=== PATIENT | female | born 1965 | race Caucasian/White ===

== ENCOUNTER 2021-11-23 06:06 | Observation (INO) ==
[2021-11-23] MEDS ORDERED: diazePAM 5 MG TABLET PO ONE (06:32)
[2021-11-23] MEDS ORDERED: Ondansetron 4 MG/2 ML VIAL ONE (06:45)
[2021-11-23] MEDS ORDERED: Lidocaine -MPF 2% 5 ML VIAL ONE (06:45)
[2021-11-23] MEDS ORDERED: *HR* Midazolam HCl 5 MG/5 ML VIAL IVP ONE (06:45)
[2021-11-23] MEDS ORDERED: *HR* FentaNYL (PF) 100 MCG/2 ML VIAL ONE (06:45)
[2021-11-23] MEDS ORDERED: CeFAZolin Syr 2,000MG/20 ML 2,000 MG/20 ML SYRINGE IVPB ONE (06:46)
[2021-11-23] MEDS ORDERED: Ringers Solution, Lactated 1,000 ML IVC SCH ×2 (07:00→12:03)
[2021-11-23] MEDS ORDERED: Famotidine 20 MG TABLET PO ONE (07:00)
[2021-11-23] MEDS ORDERED: Tranexamic Acid 1,000 MG/10 ML VIAL ONE ×2 (07:25→09:36)
[2021-11-23] MEDS ORDERED: *HR* OxyCODONE Immed Rel 5 MG TABLET PO PRN ×2 (10:28→12:03)
[2021-11-23] MEDS ORDERED: Ondansetron 4 MG/2 ML VIAL IVP PRN ×2 (10:28→12:03)
[2021-11-23] MEDS ORDERED: *HR* Midazolam HCl 2 MG/2 ML VIAL IVP PRN (11:21)
[2021-11-23] MEDS ORDERED: Naloxone 0.4 MG/ML INJ IVP PRN (12:03)
[2021-11-23] MEDS ORDERED: Sennosides 8.6 MG TABLET PO PRN (12:03)
[2021-11-23] MEDS ORDERED: *HR* Promethazine 25 MG/ML VIAL IM PRN (12:03)
[2021-11-23] MEDS ORDERED: MOM Conc 10 ML UD.LIQ PO PRN (12:03)
[2021-11-23] MEDS ORDERED: *HR* HYDROmorphone (PF) 1 MG/ML SYRINGE IVP PRN (12:03)
[2021-11-23] MEDS: CeFAZolin 2 GM/120 ML BAG IVPB SCH ×2 (18:29→23:32)
[2021-11-23] MEDS: Ascorbic Acid 500 MG TABLET PO SCH (18:30)
[2021-11-23] MEDS: Apixaban 2.5 MG TABLET PO SCH ×2 (19:33→19:35)
[2021-11-23] MEDS: *HR* OxyCODONE Immed Rel 5 MG TABLET PO PRN (20:17)
[2021-11-24] MEDS: *HR* OxyCODONE Immed Rel 5 MG TABLET PO PRN (01:19)
[2021-11-24 05:53] LABS: Basophils % 0.3 %; Eosinophils % 0.3 %; Hematocrit 36.9 % (35.3-44.9); Hemoglobin 11.8 g/dL (11.5-15.4); Immature Granulocytes % 0.5 % (0-4); Lymphocytes # 1.3 K/mcL (0.6-4.6); Lymphocytes % 13.4 %; Mean Corpuscular Hemoglobin 27.2 pg (28.0-33.3); Mean Platelet Volume 7.9 fL (9.4-12.4); Monocytes # 0.9 K/mcL (0.0-1.3); Monocytes % 9.8 %; Platelet Count 293 K/mcL (140-400); Red Blood Count 4.34 M/mcL (3.82-4.97); Red Cell Distribution Width 14.1 % (11.5-14.5); Segmented Neutrophils % 75.7 %; White Blood Count 9.3 K/mcL (4.3-11.1)
[2021-11-24 06:18] LABS: BUN/Creatinine Ratio 15 (6-26); Blood Urea Nitrogen 9 mg/dL (6-20); Calcium 8.2 mg/dL (8.6-10.3); Carbon Dioxide 26 mEq/L (23-29); Chloride 106 mEq/L (98-107); Glucose 120 mg/dL (70-105); Osmolality,Calculated 288 (280-300); Potassium 3.6 mEq/L (3.5-5.1); Sodium 139 mEq/L (136-145)
[2021-11-24] MEDS ORDERED: Budesonide/Formoterol 160/4.5 1 PUFF INH IH ONE (07:41)
[2021-11-24] MEDS ORDERED: Budesonide/Formoterol 80/4.5 1 PUFF INH IH ONE (07:46)
[2021-11-24] MEDS ORDERED: HYDROcodone BIT/Homatropine 5 MG TABLET PO PRN (08:12)
[2021-11-24] MEDS: Apixaban 2.5 MG TABLET PO SCH ×2 (09:02→20:36)
[2021-11-24] MEDS: Ascorbic Acid 500 MG TABLET PO SCH ×2 (09:02→17:21)
[2021-11-24] MEDS: Multivit/Ca/Min/Fe/FA 1 TAB TABLET PO SCH (09:02)
[2021-11-24] MEDS: Budesonide/Formoterol 80/4.5 1 PUFF INH IH SCH (10:12)
[2021-11-25 02:54] VITALS: BP 120/60; PULSE 96; TEMP 98.4
[2021-11-25] MEDS: HYDROcodone BIT/Homatropine 5 MG TABLET PO PRN ×2 (03:12→13:17)
[2021-11-25 05:07] LABS: Basophils # 0.1 K/mcL (0.0-0.2); Basophils % 0.5 %; Eosinophils % 0.4 %; Hematocrit 34.8 % (35.3-44.9); Hemoglobin 11.1 g/dL (11.5-15.4); Immature Granulocytes % 0.5 % (0-4); Lymphocytes # 1.4 K/mcL (0.6-4.6); Lymphocytes % 14.1 %; Mean Corpuscular HGB Conc 31.9 g/dL (31.6-35.5); Mean Corpuscular Hemoglobin 26.7 pg (28.0-33.3); Mean Corpuscular Volume 83.9 fL (83.0-100.0); Mean Platelet Volume 8.1 fL (9.4-12.4); Monocytes % 10.2 %; Neutrophils # 7.6 K/mcL (1.6-8.9); Platelet Count 279 K/mcL (140-400); Red Blood Count 4.15 M/mcL (3.82-4.97); Red Cell Distribution Width 14.6 % (11.5-14.5); Segmented Neutrophils % 74.3 %; White Blood Count 10.2 K/mcL (4.3-11.1)
[2021-11-25 05:51] LABS: BUN/Creatinine Ratio 11 (6-26); Blood Urea Nitrogen 7 mg/dL (6-20); Calcium 8.1 mg/dL (8.6-10.3); Carbon Dioxide 30 mEq/L (23-29); Chloride 104 mEq/L (98-107); Glucose 112 mg/dL (70-105); Osmolality,Calculated 285 (280-300); Potassium 3.4 mEq/L (3.5-5.1); Sodium 138 mEq/L (136-145)
[2021-11-25] MEDS: Multivit/Ca/Min/Fe/FA 1 TAB TABLET PO SCH (07:23)
[2021-11-25] MEDS: Apixaban 2.5 MG TABLET PO SCH (07:23)
[2021-11-25] MEDS: Ascorbic Acid 500 MG TABLET PO SCH (07:23)
[2021-11-25] MEDS: Budesonide/Formoterol 80/4.5 1 PUFF INH IH SCH (10:55)
[2021-11-25 10:56] VITALS: O2SAT 98
== END 2021-11-25 13:31 | disposition home or self-care (01) ==
LOC: 4WAOSI 06:06 → SDCAOSI 06:06 → 4WAOSI 12:05
PROVIDERS: ADMIT Orthopaedic Surgery; ATTEND Orthopaedic Surgery

== ENCOUNTER 2021-12-21 12:57 | Inpatient (IN) ==
[2021-12-21 14:02] LABS: Basophils % 0.6 %; Eosinophils # 0.2 K/mcL (0.0-0.6); Eosinophils % 2.7 %; Hematocrit 44.4 % (35.3-44.9); Hemoglobin 14.7 g/dL (11.5-15.4); Immature Granulocytes % 0.1 % (0-4); Lymphocytes # 3.5 K/mcL (0.6-4.6); Lymphocytes % 51.9 %; Mean Corpuscular HGB Conc 33.1 g/dL (31.6-35.5); Mean Corpuscular Volume 81.5 fL (83.0-100.0); Mean Platelet Volume 8.3 fL (9.4-12.4); Monocytes # 0.6 K/mcL (0.0-1.3); Monocytes % 8.3 %; Neutrophils # 2.5 K/mcL (1.6-8.9); Platelet Count 516 K/mcL (140-400); Red Blood Count 5.45 M/mcL (3.82-4.97); Red Cell Distribution Width 15.7 % (11.5-14.5); Segmented Neutrophils % 36.4 %; White Blood Count 6.8 K/mcL (4.3-11.1)
[2021-12-21 14:09] LABS: INR 1.2; Prothrombin Time 13.8 Seconds (9.4-12.1)
[2021-12-21 14:12] LABS: Activated Partial Thrombo Time 42.1 Seconds (26.0-36.0)
[2021-12-21 14:32] LABS: BUN/Creatinine Ratio 22 (6-26); Blood Urea Nitrogen 20 mg/dL (6-20); Calcium 10.5 mg/dL (8.6-10.3); Carbon Dioxide 18 mEq/L (23-29); Chloride 106 mEq/L (98-107); Glucose 126 mg/dL (70-105); Osmolality,Calculated 290 (280-300); Potassium 4.2 mEq/L (3.5-5.1); Sodium 138 mEq/L (136-145); Troponin I < 0.03 ng/mL (< 0.04)
[2021-12-21] MEDS ORDERED: 0.9 % Sodium Chloride 500 ML IVC ONE (14:48)
[2021-12-21] MEDS ORDERED: Aspirin 81 MG TAB.CHEW PO ONE (14:48)
[2021-12-21] MEDS: DilTIAZem 50 MG/50 ML IV.SOLN IVC SCH ×2 (16:10→21:24)
[2021-12-21 17:08] LABS: Alanine Aminotransferase 25 Units/L (7-52); Albumin 3.9 g/dL (3.5-5.7); Albumin/Globulin Ratio 1.1 (1.1-2.2); Alkaline Phosphatase 102 Units/L (34-104); Aspartate Amino Transferase 24 Units/L (13-39); Bilirubin,Direct 0.1 mg/dL (0.0-0.2); Bilirubin,Indirect 0.4 mg/dL (0.0-1.0); Bilirubin,Total 0.5 mg/dL (0.3-1.0); Globulin 3.4 g/dL (2.4-3.5); Magnesium 1.7 mg/dL (1.6-2.6); Total Protein 7.3 g/dL (6.4-8.9)
[2021-12-21 17:21] LABS: Thyroid Stimulating Hormone 1.187 mcIU/mL (0.340-5.600)
[2021-12-21] MEDS ORDERED: Ondansetron 4 MG/2 ML VIAL IVP PRN (19:57)
[2021-12-21] MEDS ORDERED: Naloxone 0.4 MG/ML INJ IVP PRN (19:57)
[2021-12-21] MEDS ORDERED: Melatonin 3 MG TABLET PO PRN (19:57)
[2021-12-21] MEDS ORDERED: Acetaminophen 325 MG TABLET PO PRN (19:57)
[2021-12-21] MEDS ORDERED: *HR* Heparin 5,000 UNIT/ML VIAL IVP ONE (21:23)
[2021-12-21] MEDS ORDERED: *HR* Heparin 5,000 UNIT/ML VIAL IVP PRN ×2 (21:23)
[2021-12-21] MEDS ORDERED: Heparin 25,000UNIT/250ML 1/2NS 25,000 UNIT/250 ML IV.SOLN IVC SCH ×2 (21:30)
[2021-12-21 21:52] LABS: Hemoglobin 13.8 g/dL (11.5-15.4); Mean Corpuscular HGB Conc 32.1 g/dL (31.6-35.5); Mean Corpuscular Hemoglobin 26.5 pg (28.0-33.3); Mean Corpuscular Volume 82.5 fL (83.0-100.0); Mean Platelet Volume 7.8 fL (9.4-12.4); Platelet Count 451 K/mcL (140-400); Red Blood Count 5.21 M/mcL (3.82-4.97); Red Cell Distribution Width 15.6 % (11.5-14.5); White Blood Count 9.9 K/mcL (4.3-11.1)
[2021-12-21 22:01] LABS: Heparin anti-factor XA UFH 0.49 IU/mL (0.30-0.70); INR 1.2; Prothrombin Time 13.5 Seconds (9.4-12.1)
[2021-12-21 22:04] LABS: Activated Partial Thrombo Time 33.7 Seconds (26.0-36.0)
[2021-12-21] MEDS: predniSONE 20 MG TABLET PO SCH (22:20)
[2021-12-22] MEDS ORDERED: *HR* Metoprolol 5 MG/5 ML VIAL IVP PRN (01:51)
[2021-12-22 05:53] LABS: Basophils % 0.3 %; Eosinophils # 0.1 K/mcL (0.0-0.6); Hemoglobin 14.1 g/dL (11.5-15.4); Immature Granulocytes % 0.3 % (0-4); Lymphocytes # 2.1 K/mcL (0.6-4.6); Lymphocytes % 36.3 %; Mean Corpuscular Hemoglobin 26.5 pg (28.0-33.3); Mean Corpuscular Volume 82.7 fL (83.0-100.0); Monocytes # 0.2 K/mcL (0.0-1.3); Monocytes % 3.1 %; Neutrophils # 3.4 K/mcL (1.6-8.9); Platelet Count 417 K/mcL (140-400); Red Blood Count 5.32 M/mcL (3.82-4.97); White Blood Count 5.8 K/mcL (4.3-11.1)
[2021-12-22 06:11] LABS: BUN/Creatinine Ratio 25 (6-26); Blood Urea Nitrogen 17 mg/dL (6-20); Calcium 9.3 mg/dL (8.6-10.3); Carbon Dioxide 22 mEq/L (23-29); Chloride 106 mEq/L (98-107); Glucose 140 mg/dL (70-105); Magnesium 1.9 mg/dL (1.6-2.6); Osmolality,Calculated 286 (280-300); Potassium 4.2 mEq/L (3.5-5.1); Sodium 136 mEq/L (136-145)
[2021-12-22] MEDS ORDERED: Metoprolol XL (24 HR) Succ 25 MG TAB.ER.24H PO SCH (09:00)
[2021-12-22] MEDS ORDERED: Colchicine 0.6 MG TABLET PO SCH (09:00)
[2021-12-22] MEDS: predniSONE 20 MG TABLET PO SCH (09:15)
[2021-12-22 15:27] VITALS: BP 114/71; PULSE 86; TEMP 99.1; O2SAT 96
== END 2021-12-22 17:38 | disposition home or self-care (01) | DRG 309 ==
LOC: EMEROOARM 12:57 → 2ANU 12:57 → SUATTDRO 19:39
PROVIDERS: ADMIT Internal Medicine; ATTEND Student in an Organized Health Care Education/Training Program